=== PATIENT | female | born 1990 | race Caucasian/White ===

== ENCOUNTER 2024-04-07 20:06 | Inpatient (IN) | payer BC, OTHER ==
[2024-04-08] MEDS ORDERED: Sodium Chloride 0.9% 10 ML Syringe FLUSH PRN (00:01)
[2024-04-08] MEDS ORDERED: Oxytocin/0.9 % Sodium Chloride 30 UNIT/500 ML BAG IV SCH (00:16)
[2024-04-08 01:04] LABS: BASOPHILS PERCENT AUTO 0.3 % (0.0-1.0); EOSINOPHILS ABSOLUTE AUTO 0.1 K/mm3 (0.0-0.4); EOSINOPHILS PERCENT AUTO 0.8 % (0.0-6.0); HEMATOCRIT 39.5 % (37.0-47.0); HEMOGLOBIN 13.2 gm/dl (12.0-16.0); IMMATURE GRAN ABSOLUTE AUTO 0.05 K/mm3 (0.00-0.05); IMMATURE GRAN PERCENT AUTO 0.4 % (0.0-0.4); LYMPHOCYTES ABSOLUTE AUTO 2.7 K/mm3 (1.0-4.8); LYMPHOCYTES PERCENT AUTO 22.5 % (24.0-44.0); MEAN CORPUSCULAR HEMOGLOBIN 31.2 pg (28.0-32.0); MEAN CORPUSCULAR HGB CONC 33.4 g/dl (32.0-36.0); MEAN CORPUSCULAR VOLUME 93.4 fl (83.0-99.0); MEAN PLATELET VOLUME 10.4 fl (9.4-12.3); MONOCYTES ABSOLUTE AUTO 0.9 K/mm3 (0.0-0.8); MONOCYTES PERCENT AUTO 7.5 % (0.0-8.0); NEUTROPHILS ABSOLUTE AUTO 8.2 K/mm3 (1.8-7.7); NEUTROPHILS PERCENT AUTO 68.5 % (41.0-71.0); PLATELET COUNT,PLT 185 K/mm3 (150-400); RED BLOOD CELL COUNT 4.23 M/mm3 (4.10-5.30)
[2024-04-08 01:50] LABS: FIBRIN DEGREDATION PRODUCTS 5<20 ug/mL (<5)
[2024-04-08 01:53] LABS: PROTHROMBIN TIME 9.5 SECONDS (9.7-12.0)
[2024-04-08 01:55] LABS: PTT,PARTIAL THROMBOPLSTIN TIME 25.4 SECONDS (21.7-31.4)
[2024-04-08 01:57] LABS: FIBRINOGEN 463 mg/dL (187-446)
[2024-04-08 01:58] LABS: INR < 0.93
[2024-04-08 02:00] LABS: D-DIMER QUANTITATIVE 2.36 mg/L (0.19-0.50)
[2024-04-08] MEDS: Lactated Ringers 1,000 ML IV SCH (05:27)
[2024-04-08] MEDS ORDERED: ceFAZolin 2 GM Vial ONE (06:20)
[2024-04-08] MEDS ORDERED: Ketorolac 30 MG/ML SDV ONE (06:20)
[2024-04-08] MEDS ORDERED: Lactated Ringers 1,000 ML ONE (06:20)
[2024-04-08] MEDS ORDERED: Ondansetron 4 MG/2 ML SDV ONE (06:20)
[2024-04-08] MEDS ORDERED: Morphine PF 10 MG/10 ML SDV ONE (06:20)
[2024-04-08] MEDS: Metoclopramide 10 MG/2 ML SDV IVPUSH ONE (07:09)
[2024-04-08] MEDS: Citric Acid/Sodium Citrate Solution 30 ML Cup PO ONE (07:09)
[2024-04-08] MEDS ORDERED: ePHEDrine 50 MG/ML SDV ONE (07:24)
[2024-04-08] MEDS ORDERED: fentaNYL 100 MCG/2 ML SDV IVPUSH PRN (07:58)
[2024-04-08] MEDS ORDERED: Ondansetron 4 MG/2 ML SDV IVPUSH PRN (07:58)
[2024-04-08] MEDS ORDERED: Docusate Sodium 100 MG Cap PO PRN (09:20)
[2024-04-08] MEDS ORDERED: Acetaminophen/oxyCODONE 325-5 MG Tab PO PRN ×2 (09:20)
[2024-04-08] MEDS ORDERED: ePHEDrine 50 MG/ML SDV IVPUSH PRN (09:20)
[2024-04-08] MEDS ORDERED: Naloxone 0.4 MG/ML SDV IVPUSH PRN (09:20)
[2024-04-08] MEDS ORDERED: diphenhydrAMINE 50 MG/ML SDV IVPUSH PRN (09:20)
[2024-04-08] MEDS: Dextrose 5%-Lactated Ringers 1,000 ML IV SCH (09:30)
[2024-04-08] MEDS: diphenhydrAMINE 50 MG/ML SDV IVPUSH PRN (10:17)
[2024-04-08] MEDS: Ketorolac 30 MG/ML SDV IVPUSH SCH (15:08)
[2024-04-08] MEDS: Ondansetron 4 MG/2 ML SDV IVPUSH PRN (15:24)
[2024-04-08] MEDS: Sodium Chloride 0.9% 10 ML Syringe FLUSH SCH (20:34)
[2024-04-08] MEDS: ceFAZolin 2 GM in Sodium Chloride 0.9% 50 ML IV ONE (20:34)
[2024-04-09 05:27] LABS: HEMATOCRIT 38.2 % (37.0-47.0); HEMOGLOBIN 12.5 gm/dl (12.0-16.0); MEAN CORPUSCULAR HEMOGLOBIN 31.4 pg (28.0-32.0); MEAN CORPUSCULAR HGB CONC 32.7 g/dl (32.0-36.0); MEAN PLATELET VOLUME 10.2 fl (9.4-12.3); PLATELET COUNT,PLT 150 K/mm3 (150-400); RED BLOOD CELL COUNT 3.98 M/mm3 (4.10-5.30)
[2024-04-09] MEDS: Ibuprofen 600 MG Tab PO SCH (08:08)
[2024-04-09] MEDS: Acetaminophen 325 MG Tab PO PRN (10:54)
[2024-04-09] MEDS: Simethicone 80 MG Tab.Chew PO PRN (12:50)
[2024-04-10] MEDS: oxyCODONE 5 MG Tab PO PRN (00:08)
== END 2024-04-11 12:15 | disposition home or self-care (01) | DRG 540 ==
LOC: JD.OB 20:06
PROVIDERS: ADMIT Obstetrics & Gynecology; ATTEND Obstetrics & Gynecology
PROC: 10D00Z1 Extraction of Products of Conception, Low, Open Approach (ICD-10-PCS; principal; 2024-04-08 07:30)
DX: O34.211 Maternal care for low transverse scar from previous cesarean delivery (principal); Z3A.39 39 weeks gestation of pregnancy; Z37.0 Single live birth
CPT/HCPCS: 01961; 36415; 59020; 59025; 85025; 85027; 85362; 85379; 85384; 85610; 85730; 86592; 86850; 86900; 86901; 94762; A9270-GY; J0690; J1200; J1885; J2274; J2405; J2765; J3490; J7120; J7121